=== PATIENT | female | born 1955 | race Caucasian/White ===

== ENCOUNTER 2022-11-07 23:54 | Emergency (ER) | payer MEDICARE | END 2022-11-08 01:10 | disposition home or self-care (01) | LOC: JD.ED 23:54 | DX: S61.011A Laceration without foreign body of right thumb without damage to nail, initial encounter (principal); Z72.0 Tobacco use; W26.0XXA Contact with knife, initial encounter; Y93.G3 Activity, cooking and baking | CPT/HCPCS: 12001; 99283 ==

== ENCOUNTER 2023-01-28 13:14 | Emergency (ER) | payer MEDICARE ==
[2023-01-28] MEDS ORDERED: cefTRIAXone 1 GM, Lidocaine 1% 2.1 ML IM ONE ×2 (13:51)
== END 2023-01-28 14:15 | disposition home or self-care (01) ==
LOC: JD.ED 13:14
DX: S61.452A Open bite of left hand, initial encounter (principal); F17.210 Nicotine dependence, cigarettes, uncomplicated; W55.01XA Bitten by cat, initial encounter
CPT/HCPCS: 96372; 99283; J0696; J3490